=== PATIENT | female | born 1940 | race Caucasian/White ===

== ENCOUNTER 2019-08-14 13:23 | Inpatient (IN) | payer MEDICARE, OTHER ==
[~2019-08-14] VITALS: Ht 167.6 cm; Wt 91.5 kg
[2019-08-14] VITALS (9 sets, daily range): BP systolic 113–131; BP diastolic 45–72
[2019-08-14] MEDS ORDERED: CefTRIAXone 2gm/D5W 50ml 50 ML IV ONE (14:55)
[2019-08-14] MEDS ORDERED: normal saline 1000ML IV soln IV ONE (14:55)
[2019-08-14 15:50] LABS: BASOPHILS # (AUTO) 0.1 X10'3 (0-0.2); HEMOGLOBIN 7.2 g/dl (12.0-16.0); LYMPHOCYTES # (AUTO) 1.3 X10'3 (1.1-4.8); WHITE BLOOD COUNT 2.7 X10'3 (4.5-11.0)
[2019-08-14 15:51] LABS: BASOPHILS % (AUTO) 1.8 % (0-1); EOSINOPHILS # (AUTO) 0.1 X10'3 (0-0.9); EOSINOPHILS % (AUTO) 4.9 % (0-6); LYMPHOCYTES % (AUTO) 48.9 % (21-51); MEAN CORPUSCULAR HEMOGLOBIN 32.9 PG (27.0-31.0); MEAN CORPUSCULAR VOLUME 94.1 FL (78-98); MEAN PLATELET VOLUME 7.9 FL (7.4-10.4); MONOCYTES # (AUTO) 0.3 X10'3 (0-0.9); MONOCYTES % (AUTO) 11.2 % (2-12); NEUTROPHILS # (AUTO) 0.9 X10'3 (1.8-7.7); NEUTROPHILS % (AUTO) 33.2 % (42-75); PLATELET COUNT 413 X10'3 (140-440); RED BLOOD COUNT 2.19 X10'6 (4.20-5.60); RED CELL DISTRIBUTION WIDTH 18.3 % (11.5-14.5)
[2019-08-14 15:55] LABS: HEMATOCRIT 20.6 % (35.0-45.0)
[2019-08-14 16:01] LABS: PARTIAL THROMBOPLASTIN TIME 29 SECONDS (22-32)
[2019-08-14 16:10] LABS: ANISOCYTOSIS 2+; PLATELET ESTIMATE NORMAL; TOTAL CELLS COUNTED 100
[2019-08-14 16:11] LABS: ELLIPTOCYTES 1+; POIKILOCYTOSIS FEW; TEAR DROP CELLS FEW
[2019-08-14 16:16] LABS: ALANINE AMINOTRANSFERASE 34 U/L (12-78); ALBUMIN 2.6 G/DL (3.4-5.0); ALBUMIN/GLOBULIN RATIO 0.5 (1.1-1.5); ALKALINE PHOSPHATASE 77 IU/L (46-116); ANION GAP 9 (8-16); ASPARTATE AMINO TRANSFERASE 45 U/L (10-37); BILIRUBIN,TOTAL 0.8 MG/DL (0.1-1.0); BLOOD UREA NITROGEN 21 MG/DL (7-18); BUN/CREATININE RATIO 28.4 (6.6-38.0); CALCIUM 8.5 MG/DL (8.5-10.1); CHLORIDE 104 MMOL/L (99-107); CREATININE 0.74 MG/DL (0.40-0.90); GLUCOSE 107 MG/DL (70-104); SODIUM 140 MMOL/L (135-145); TOTAL CARBON DIOXIDE 26.7 MMOL/L (24-32); TOTAL PROTEIN 7.9 G/DL (6.4-8.2); eGFR 75 ML/MIN
[2019-08-14 16:17] LABS: CREATINE KINASE 749 U/L (26-192); MAGNESIUM 2.2 MG/DL (1.5-2.4)
--- NOTE | 2019-08-14 16:32 | NUR ---
romy pedro called and said she can not find the phone number for her son. she gave me the name of his son kailash carlson. pt. was unable to give romy pedro his phone number.
[2019-08-14] MEDS ORDERED: diltiazem-NS 100mg/100ml 100 ML IV SCH ×2 (16:45→20:30)
[2019-08-14] MEDS ORDERED: diltiazem-D5W 125mg/125ml 125 ML IV SCH (16:45)
--- NOTE | 2019-08-14 16:48 | NUR ---
pt went into afib with rvr. notified. repeat ekg called.
[2019-08-14 16:50] LABS: CLARITY,URINE CLOUDY (Clear); COLOR,URINE YELLOW (Yellow); GLUCOSE, URINE NEGATIVE (Neg); KETONES,URINE TRACE mg/dl (Neg); LEUKOCYTE ESTERASE ,URINE NEGATIVE (Neg); NITRITES, URINE NEGATIVE (Neg); OCCULT BLOOD,URINE SMALL (Neg); PROTEIN,URINE 30 mg/dl (Neg)
[2019-08-14 16:55] LABS: UA COLLECTION TYPE STRAIGHT CATH
[2019-08-14 16:56] LABS: BACTERIA,URINE 4+ /HPF (Neg); MUCUS STRANDS FEW /LPF (Neg); RBC,URINE 0-2 /HPF (0-2); SQUAMOUS EPITHELIAL CELL,UR FEW /LPF (FEW); WBC,URINE 0-4 /HPF (0-4)
[2019-08-14] MEDS: diltiazem 5mg/ml 5ml inj. IV ONE ×2 (16:56→17:13)
[2019-08-14] MEDS ORDERED: diltiazem 5mg/ml 5ml inj. IV ONE ×2 (17:05→17:50)
[2019-08-14] MEDS ORDERED: UBID30CA8 PO (17:06)
[2019-08-14] MEDS ORDERED: mag hydrox/Alum hydrox/simeth 30ml oral suspension PO PRN (17:10)
[2019-08-14] MEDS ORDERED: ondansetron/PF 4mg/2ml inj IV PRN (17:10)
[2019-08-14] MEDS ORDERED: acetaminophen 325mg tablet PO PRN (17:10)
[2019-08-14] MEDS ORDERED: magnesium hydroxide 30ml (MOM) UD suspension PO PRN (17:10)
[2019-08-14] MEDS ORDERED: morphine 2 MG/ML inj. syringe IV PRN ×2 (17:10)
[2019-08-14] MEDS ORDERED: ASPI-1264 PO (17:14)
--- NOTE | 2019-08-14 17:49 | NUR ---
TC TO DR. FOSTER TO INFORM OF PATIENT RESPONSE TO CARDIZEM IV AND CURRENT VITAL SIGNS. ORDERS RECEIVED.
[2019-08-14] MEDS ORDERED: diltiazem CD 120mg capsule (once-daily) PO SCH (17:50)
[2019-08-14] MEDS ORDERED: diltiazem CD 120mg capsule (once-daily) PO ONE (17:50)
--- NOTE | 2019-08-14 18:14 | NUR ---
AFTER BOTH DOSES OF IV CARDIZEM PUSH, AND THE PO CARDIZEM PT MENTIONED "SEEING THINGS" VAGUELY. WILL CONTINUE TO MONITOR IF THIS IS AN ADVERSE REACTION FROM THE MEDICATION.
--- NOTE | 2019-08-14 18:24 | NUR ---
md richardson notified of pt's pulse continuing in the 150-160s after second cardizem push, and po cardizem. dylan does not want to give anything else at this time and continue to monitor.
[2019-08-14] MEDS ORDERED: potassium Cl 20 mEq SR tablet PO STA (18:33)
[2019-08-14] MEDS: dextrose 5%-1/2 normal saline 1,000 ML IV SCH (20:48)
[2019-08-14] MEDS ORDERED: potassium Cl 20 mEq SR tablet PO PRN (21:55)
[2019-08-14] MEDS ORDERED: digoxin 250mcg/ml 2ml ampule IV ONE (22:05)
[2019-08-14] MEDS: potassium Cl 20 mEq SR tablet PO PRN (22:21)
[2019-08-15] VITALS (12 sets, daily range): BP systolic 132–155; BP diastolic 41–56
--- NOTE | 2019-08-15 00:20 | NUR ---
Patient arrived on unit at 1924/ I received patient report from KAY Bolivar in ED. Patient arrived on hospital [facility] and was transferred to hospital bed. Vital signs obtained, telemetry unit applied. Patient HR was 150's to 160 reported by KickAss Candy Aaliyah. Dr. Shay wanted to keep this patient on PO Cardizem, however, 85 min after receiving 2X 10 mg Cardizem push and 120 mg Po capsule, patient HR would not decrease. Called Dr. Keane and obtained order for Cardizem drip 5 mg/hr stop if systolic BP drops below <110. Patient HR remained high 140's-150's. Called Dr. Keane again and obtained order for 0.25 mg Digoxin IV push X1. Patient HR remains high at this time. Will follow up with Dr. Keane.
[2019-08-15] MEDS ORDERED: digoxin 250mcg/ml 2ml ampule IV ONE (02:00)
[2019-08-15 02:36] LABS: OCCULT BLOOD STOOL NEGATIVE (Neg)
--- NOTE | 2019-08-15 02:45 | NUR ---
Patient in room PCU 3016A. I have received report from KAY Beyer and had the opportunity to ask questions and assume patient care. Patient awake for bedside report. Patient on 5 mL/hr Cardizem and 100 mL/hr D5 1/2 NS per provider order. Patient on room air and stable at this time. Per roadway technician, patient converted to sinus rhythm with HR in 80's. Per Dr. Keane, we will keep Cardizem 5 mL/hr. Will continue to monitor closely.
--- NOTE | 2019-08-15 02:45 | NUR ---
Problems reprioritized. Patient report given, questions answered & plan of care reviewed with KAY Marroquin.
[2019-08-15] MEDS: potassium Cl 20 mEq SR tablet PO PRN (03:07)
[2019-08-15] MEDS: dextrose 5%-1/2 normal saline 1,000 ML IV SCH ×2 (03:17→13:08)
[2019-08-15 03:59] LABS: ALBUMIN 2.1 G/DL (3.4-5.0); ANION GAP 11 (8-16); BLOOD UREA NITROGEN 19 MG/DL (7-18); CALCIUM 7.7 MG/DL (8.5-10.1); CHLORIDE 107 MMOL/L (99-107); CHOL/HDL RATIO 6.6 (0.00-4.99); CHOLESTEROL 119 MG/DL (0-200); CREATININE 0.73 MG/DL (0.40-0.90); GLUCOSE 134 MG/DL (70-104); HDL CHOLESTEROL 18 MG/DL (35-60); LDL CHOLESTEROL 86 MG/DL (50-100); POTASSIUM 3.8 MMOL/L (3.5-5.1); SODIUM 140 MMOL/L (135-145); TOTAL CARBON DIOXIDE 21.9 MMOL/L (24-32); TRIGLYCERIDES 90 MG/DL (20-135); eGFR 77 ML/MIN
[2019-08-15 04:25] LABS: EOSINOPHILS # (AUTO) 0.2 X10'3 (0-0.9); EOSINOPHILS % (AUTO) 8.6 % (0-6); LYMPHOCYTES # (AUTO) 1.1 X10'3 (1.1-4.8); MONOCYTES # (AUTO) 0.3 X10'3 (0-0.9); NEUTROPHILS # (AUTO) 0.8 X10'3 (1.8-7.7)
[2019-08-15 04:27] LABS: BASOPHILS % (AUTO) 1.7 % (0-1); MEAN CORPUSCULAR HEMOGLOBIN 33.8 PG (27.0-31.0); MEAN CORPUSCULAR HGB CONC 34.9 g/dL (33.0-36.5); MEAN CORPUSCULAR VOLUME 96.8 FL (78-98); MEAN PLATELET VOLUME 8.5 FL (7.4-10.4); MONOCYTES % (AUTO) 12.2 % (2-12); NEUTROPHILS % (AUTO) 32.5 % (42-75); PLATELET COUNT 346 X10'3 (140-440); RED CELL DISTRIBUTION WIDTH 18.6 % (11.5-14.5); WHITE BLOOD COUNT 2.5 X10'3 (4.5-11.0)
[2019-08-15 04:37] LABS: HEMATOCRIT 19.4 % (35.0-45.0); HEMOGLOBIN 6.8 g/dl (12.0-16.0)
--- NOTE | 2019-08-15 05:00 | NUR ---
Dr. Keane notified of critical H&H 6.8 & 19.4, respectively. Consent for blood transfusion placed in chart to be completed by day time hospitalist and day RN per Dr. Keane. Will continue to monitor closely.
--- NOTE | 2019-08-15 06:21 | NUR ---
Problems reprioritized. Patient report given, questions answered & plan of care reviewed with KAY Nichols and KAY Antunez.
--- NOTE | 2019-08-15 06:37 | NUR ---
Patient in room PCU 3016. I have received report from KAY Marroquin and had the opportunity to ask questions and assume patient care.
--- NOTE | 2019-08-15 06:39 | NUR ---
Patient in room PCU 3016. I have received report from Lopez VILLANUEVA and had the opportunity to ask questions and assume patient care. Patient awake in bed with no complaints at this time. All immediate needs met.
[2019-08-15 07:35] LABS: NEUTROPHILS % (MANUAL) 30 % (42-75); TOTAL CELLS COUNTED 100
[2019-08-15 07:36] LABS: EOSINOPHILS % (MANUAL) 4 % (0-6); LYMPHOCYTES % (MANUAL) 49 % (21-51); MONOCYTES % (MANUAL) 15 % (2-12); PLATELET ESTIMATE NORMAL; REACTIVE LYMPHOCYTES % 2 % (0-0)
[2019-08-15 07:37] LABS: ANISOCYTOSIS 2+; ELLIPTOCYTES 1+; SCHISTOCYTES 1+
[2019-08-15 08:44] LABS: LACTATE DEHYDROGENASE 361 U/L (81-234)
[2019-08-15 08:49] LABS: RED BLOOD COUNT 2.03 X10'6 (4.20-5.60); RETICULOCYTE % (AUTO) 1.2 % (0.5-1.5)
--- NOTE | 2019-08-15 08:51 | NUR ---
New orders per Dr. Shay: Discontinue cardizem gtt. 1 unit PRBC now. Levaquin 500 mg IV daily. Flagyl 500 mg IV Q8H. PT evaluation and treat.
[2019-08-15] MEDS: metroNIDAZOLE-Flagyl 500mg/NS 100 ML IV SCH ×2 (10:35→17:43)
[2019-08-15] MEDS: levoFLOXACIN-Levaquin 500mg/D5 100 ML IV SCH (13:12)
[2019-08-15] MEDS: HYDROcodone/acetaminophen 5mg/325mg tablet PO PRN (15:24)
--- NOTE | 2019-08-15 18:26 | NUR ---
Problems reprioritized. Patient report given, questions answered & plan of care reviewed with Kayleen VILLANUEVA. Patient stable at transfer of care.
--- NOTE | 2019-08-15 18:26 | NUR ---
Patient in room PCU 3016. I have received report from KAY Nichols and had the opportunity to ask questions and assume patient care.
--- NOTE | 2019-08-15 18:26 | NUR ---
Problems reprioritized. Patient report given, questions answered & plan of care reviewed with KAY Beyer.
[2019-08-15 22:06] LABS: HEMATOCRIT 23.7 % (35.0-45.0); HEMOGLOBIN 8.2 g/dl (12.0-16.0); MEAN CORPUSCULAR HEMOGLOBIN 32.2 PG (27.0-31.0); MEAN CORPUSCULAR HGB CONC 34.5 g/dL (33.0-36.5); MEAN CORPUSCULAR VOLUME 93.3 FL (78-98); MEAN PLATELET VOLUME 8.1 FL (7.4-10.4); PLATELET COUNT 255 X10'3 (140-440); RED BLOOD COUNT 2.55 X10'6 (4.20-5.60); RED CELL DISTRIBUTION WIDTH 19.7 % (11.5-14.5); WHITE BLOOD COUNT 2.5 X10'3 (4.5-11.0)
[2019-08-16] VITALS (8 sets, daily range): BP systolic 113–174; BP diastolic 47–91
[2019-08-16] MEDS: dextrose 5%-1/2 normal saline 1,000 ML IV SCH ×3 (04:03→22:47)
[2019-08-16] MEDS: metroNIDAZOLE-Flagyl 500mg/NS 100 ML IV SCH ×2 (04:03→08:35)
[2019-08-16 05:42] LABS: HEMOGLOBIN 8.2 g/dl (12.0-16.0); LYMPHOCYTES # (AUTO) 1.1 X10'3 (1.1-4.8)
[2019-08-16 05:48] LABS: BASOPHILS % (AUTO) 1.6 % (0-1); EOSINOPHILS % (AUTO) 0.2 % (0-6); HEMATOCRIT 23.4 % (35.0-45.0); LYMPHOCYTES % (AUTO) 42.5 % (21-51); MEAN CORPUSCULAR HEMOGLOBIN 32.6 PG (27.0-31.0); MEAN CORPUSCULAR VOLUME 93.2 FL (78-98); MEAN PLATELET VOLUME 8.2 FL (7.4-10.4); MONOCYTES # (AUTO) 1.3 X10'3 (0-0.9); MONOCYTES % (AUTO) 49.9 % (2-12); NEUTROPHILS # (AUTO) 0.1 X10'3 (1.8-7.7); NEUTROPHILS % (AUTO) 5.8 % (42-75); PLATELET COUNT 241 X10'3 (140-440); RED BLOOD COUNT 2.51 X10'6 (4.20-5.60); RED CELL DISTRIBUTION WIDTH 19.9 % (11.5-14.5); WHITE BLOOD COUNT 2.6 X10'3 (4.5-11.0)
[2019-08-16 06:01] LABS: ALBUMIN 2.1 G/DL (3.4-5.0); ANION GAP 11 (8-16); BLOOD UREA NITROGEN 12 MG/DL (7-18); CALCIUM 8.1 MG/DL (8.5-10.1); CHLORIDE 108 MMOL/L (99-107); CREATININE 0.63 MG/DL (0.40-0.90); GLUCOSE 129 MG/DL (70-104); POTASSIUM 3.2 MMOL/L (3.5-5.1); SODIUM 140 MMOL/L (135-145); TOTAL CARBON DIOXIDE 20.9 MMOL/L (24-32); eGFR > 90 ML/MIN
--- NOTE | 2019-08-16 06:24 | NUR ---
Patient in room PCU 3016. I have received report from KAY Beyer and had the opportunity to ask questions and assume patient care.
--- NOTE | 2019-08-16 06:26 | NUR ---
Patient in room PCU 3016. I have received report from Kayleen VILLANUEVA and had the opportunity to ask questions and assume patient care. Patient awake in bed with no complaints. All immediate needs met at this time.
--- NOTE | 2019-08-16 06:47 | NUR ---
Patient was too dizzy to stand last night. Patient was uncooperative as well. Addendum: 08/16/19 at 0648 by Kayleen Adames RN Amended: Links added.
--- NOTE | 2019-08-16 06:51 | NUR ---
Problems reprioritized. Patient report given, questions answered & plan of care reviewed with KAY Nichols.
[2019-08-16] MEDS: levoFLOXACIN-Levaquin 500mg/D5 100 ML IV SCH (07:16)
[2019-08-16] MEDS ORDERED: diltiazem 30mg tablet PO ONE (07:55)
--- NOTE | 2019-08-16 07:55 | NUR ---
New order from Dr. Fulton. Cardizem PO 30 mg once now.
[2019-08-16 08:03] LABS: ANISOCYTOSIS 2+; PLATELET ESTIMATE NORMAL; TOTAL CELLS COUNTED 100
[2019-08-16 08:04] LABS: ELLIPTOCYTES 1+; POLYCHROMASIA FEW; SCHISTOCYTES FEW
[2019-08-16 08:05] LABS: BURR CELLS FEW; TEAR DROP CELLS FEW
[2019-08-16] MEDS: HYDROcodone/acetaminophen 5mg/325mg tablet PO PRN (08:33)
--- NOTE | 2019-08-16 10:13 | NUR ---
Paged Dr. Fulton: PAGER ID: [phone] MESSAGE: RE: Blessing [place] [phone]. FYI patient received 30 mg PO Cardizem once. HR now trending in the 150's. Please advise if any new orders. Thank you Magdalena [phone]
[2019-08-16] MEDS ORDERED: diltiazem 5mg/ml 5ml inj. IV ONE (10:25)
--- NOTE | 2019-08-16 13:24 | NUR ---
Paged Ralph regarding pts HR trending between 140s - 150s PAGER ID: [phone] MESSAGE: [phone]: Blessing [place] - TASHAI Pt was given 5mg IV Cardizem once at 1026. Pt still trending 140s-150s. Please advise! Thanks. - Harmony [phone]
[2019-08-16 14:27] LABS: HEMATOCRIT 25.5 % (35.0-45.0); HEMOGLOBIN 8.9 g/dl (12.0-16.0); MEAN CORPUSCULAR HEMOGLOBIN 32.5 PG (27.0-31.0); MEAN CORPUSCULAR VOLUME 92.8 FL (78-98); MEAN PLATELET VOLUME 7.6 FL (7.4-10.4); PLATELET COUNT 215 X10'3 (140-440); RED BLOOD COUNT 2.75 X10'6 (4.20-5.60); RED CELL DISTRIBUTION WIDTH 20.1 % (11.5-14.5); WHITE BLOOD COUNT 2.4 X10'3 (4.5-11.0)
[2019-08-16] MEDS: diltiazem-NS 100mg/100ml 100 ML IV SCH ×2 (14:38→19:09)
[2019-08-16] MEDS ORDERED: metroNIDAZOLE 500mg tablet PO SCH (16:00)
[2019-08-16] MEDS ORDERED: acetaminophen 650mg rectal suppository RC PRN (17:00)
--- NOTE | 2019-08-16 17:02 | NUR ---
New orders per Dr. Rodriguez 650 tylenol rectal Q6H for fever, cardizem gtt @ 10 mL/hour.
--- NOTE | 2019-08-16 17:13 | NUR ---
Paged Donaldo regarding pts current status and that a Rapid Response was called. MESSAGE: [id number]: Blessing Bridgette: FYI: Called Rapid Response. Pt has a fever of 103 axillary, RR 30, HR 152, 93%. Pt not as responsive as this morning, -RHODA Antunez
[2019-08-16] MEDS ORDERED: iohexol 300mg/ml 100ml inj. ONE (17:31)
--- NOTE | 2019-08-16 19:00 | NUR ---
Problems reprioritized. Patient report given, questions answered & plan of care reviewed with KAY Nichols [].
[2019-08-16] MEDS ORDERED: amLODIPine 5mg tablet PO ONE (19:20)
[2019-08-16] MEDS ORDERED: heparin 10,000 units/1 ML INJ IV PRN (19:25)
[2019-08-16] MEDS ORDERED: heparin 10,000 units/1 ML INJ IV ONE (19:25)
--- NOTE | 2019-08-16 19:43 | NUR ---
Orientee documentation: I have reviewed and agree with all interventions, assessments performed and documented by Harmony VILLANUEVA. [place] Medication Administration: For this medication-pass time frame, all medication were reviewed, dispensed, administered and documented per hospital policy by Harmony VILLANUEVA.
[2019-08-16 20:12] LABS: EOSINOPHILS # (AUTO) 0.1 X10'3 (0-0.9); LYMPHOCYTES # (AUTO) 0.9 X10'3 (1.1-4.8); NEUTROPHILS # (AUTO) 1.6 X10'3 (1.8-7.7); WHITE BLOOD COUNT 2.6 X10'3 (4.5-11.0)
[2019-08-16 20:14] LABS: BASOPHILS % (AUTO) 1.1 % (0-1); HEMATOCRIT 22.8 % (35.0-45.0); LYMPHOCYTES % (AUTO) 33.3 % (21-51); MEAN CORPUSCULAR HEMOGLOBIN 32.9 PG (27.0-31.0); MEAN CORPUSCULAR HGB CONC 35.2 g/dL (33.0-36.5); MEAN CORPUSCULAR VOLUME 93.5 FL (78-98); MEAN PLATELET VOLUME 8.8 FL (7.4-10.4); MONOCYTES % (AUTO) 0.3 % (2-12); NEUTROPHILS % (AUTO) 60.3 % (42-75); PLATELET COUNT 196 X10'3 (140-440); RED BLOOD COUNT 2.44 X10'6 (4.20-5.60); RED CELL DISTRIBUTION WIDTH 19.7 % (11.5-14.5)
[2019-08-16] MEDS: heparin 25,000 UNIT/250ml bag 250 ML IV SCH (20:50)
[2019-08-16 20:52] LABS: TOTAL CELLS COUNTED 100
[2019-08-16 20:53] LABS: ANISOCYTOSIS 2+; PLATELET ESTIMATE NORMAL
[2019-08-16 20:54] LABS: ELLIPTOCYTES 2+; HYPERSEGMENTED NEUTROPHILS FEW; POLYCHROMASIA FEW; SCHISTOCYTES 1+; TEAR DROP CELLS FEW
[2019-08-16] MEDS: potassium CL 10mEq/100ml bag 100 ML IV PRN (21:38)
[2019-08-17] VITALS (10 sets, daily range): BP systolic 96–159; BP diastolic 39–51
[2019-08-17] MEDS ORDERED: metroNIDAZOLE-Flagyl 500mg/NS 100 ML IV SCH
--- NOTE | 2019-08-17 00:06 | NUR ---
Flores placed due to minimal urine output since 1800 shift change, and only 200 out during dayshift. 1350 of urine was drained from patients bladder. Urine is dark justin and slightly cloudy, strong smell.
[2019-08-17] MEDS: potassium CL 10mEq/100ml bag 100 ML IV PRN ×3 (00:14→03:38)
[2019-08-17 02:11] LABS: WHITE BLOOD COUNT 4.5 X10'3 (4.5-11.0)
[2019-08-17 02:13] LABS: BASOPHILS % (AUTO) 0.8 % (0-1); EOSINOPHILS # (AUTO) 0.1 X10'3 (0-0.9); EOSINOPHILS % (AUTO) 1.4 % (0-6); HEMATOCRIT 23.8 % (35.0-45.0); HEMOGLOBIN 8.3 g/dl (12.0-16.0); LYMPHOCYTES # (AUTO) 1.9 X10'3 (1.1-4.8); LYMPHOCYTES % (AUTO) 41.4 % (21-51); MEAN CORPUSCULAR HEMOGLOBIN 32.7 PG (27.0-31.0); MEAN CORPUSCULAR VOLUME 93.6 FL (78-98); MEAN PLATELET VOLUME 7.7 FL (7.4-10.4); MONOCYTES # (AUTO) 0.1 X10'3 (0-0.9); MONOCYTES % (AUTO) 1.7 % (2-12); NEUTROPHILS # (AUTO) 2.5 X10'3 (1.8-7.7); NEUTROPHILS % (AUTO) 54.7 % (42-75); PLATELET COUNT 176 X10'3 (140-440); RED BLOOD COUNT 2.54 X10'6 (4.20-5.60); RED CELL DISTRIBUTION WIDTH 20.6 % (11.5-14.5)
--- NOTE | 2019-08-17 02:31 | NUR ---
This patient is extremely ill. She does have new complaints. She is SOB, tachypneic, and has severe abdominal pain. Abdomen was distended and rigid. Bladder distention and minimal to no urine output noted. Performed bladder scan and showed 779 in bladder. Received order from Diya to place Flores. 1350 of dark justin urine out. Upon genitalia assessment I noted a rather odd looking mass in her vagina in which appeared as a prolapse. Upon assessing further, discovered it is attached to the vaginal wall. I do not know what it is. Patient stool is clear, jelly like in color and has been reported to Dr. Keane.
[2019-08-17 03:15] LABS: ANISOCYTOSIS 3+; ELLIPTOCYTES 2+; NUCLEATED RED BLOOD CELLS 1 /100WBC (0-0); POLYCHROMASIA 3+; SCHISTOCYTES 2+; TOTAL CELLS COUNTED 100
[2019-08-17 03:16] LABS: PLATELET ESTIMATE NORMAL
[2019-08-17] MEDS: diltiazem-NS 100mg/100ml 100 ML IV SCH ×2 (03:29→08:12)
[2019-08-17 03:37] LABS: ALBUMIN 1.9 G/DL (3.4-5.0); ANION GAP 10 (8-16); BLOOD UREA NITROGEN 15 MG/DL (7-18); BUN/CREATININE RATIO 18.1 (6.6-38.0); CHLORIDE 106 MMOL/L (99-107); CREATININE 0.83 MG/DL (0.40-0.90); GLUCOSE 153 MG/DL (70-104); POTASSIUM 3.5 MMOL/L (3.5-5.1); SODIUM 138 MMOL/L (135-145); TOTAL CARBON DIOXIDE 22.5 MMOL/L (24-32); eGFR 66 ML/MIN
--- NOTE | 2019-08-17 06:30 | NUR ---
Problems reprioritized. Patient report given, questions answered & plan of care reviewed with KAY Nichols.
--- NOTE | 2019-08-17 06:38 | NUR ---
Patient in room PCU 3016. I have received report from KAY Beyer and had the opportunity to ask questions and assume patient care.
[2019-08-17] MEDS: metroNIDAZOLE 500mg tablet PO SCH ×3 (08:36→23:55)
--- NOTE | 2019-08-17 09:04 | NUR ---
Addy Rosas and jennifer EVANS of pt converting to NSR PAGER ID: [phone] MESSAGE: [phone] Blessing Batres -- FYI: Pt converted to NSR to 0803. HR in 80s. Thanks. - Harmony [phone]
[2019-08-17 09:29] LABS: EOSINOPHILS # (AUTO) 0.1 X10'3 (0-0.9); HEMOGLOBIN 7.9 g/dl (12.0-16.0); LYMPHOCYTES # (AUTO) 1.3 X10'3 (1.1-4.8); RED BLOOD COUNT 2.41 X10'6 (4.20-5.60); WHITE BLOOD COUNT 3.1 X10'3 (4.5-11.0)
[2019-08-17 09:31] LABS: BASOPHILS % (AUTO) 0.9 % (0-1); EOSINOPHILS % (AUTO) 2.5 % (0-6); HEMATOCRIT 22.6 % (35.0-45.0); LYMPHOCYTES % (AUTO) 41.7 % (21-51); MEAN CORPUSCULAR HEMOGLOBIN 32.8 PG (27.0-31.0); MEAN CORPUSCULAR VOLUME 93.7 FL (78-98); MEAN PLATELET VOLUME 7.5 FL (7.4-10.4); MONOCYTES # (AUTO) 0.8 X10'3 (0-0.9); MONOCYTES % (AUTO) 26.2 % (2-12); NEUTROPHILS # (AUTO) 0.9 X10'3 (1.8-7.7); NEUTROPHILS % (AUTO) 28.7 % (42-75); PLATELET COUNT 172 X10'3 (140-440); RED CELL DISTRIBUTION WIDTH 20.7 % (11.5-14.5)
[2019-08-17 10:06] LABS: ANISOCYTOSIS 3+; PLATELET ESTIMATE NORMAL; TOTAL CELLS COUNTED 100
[2019-08-17 10:07] LABS: ELLIPTOCYTES 2+; SCHISTOCYTES 1+
[2019-08-17 10:10] LABS: POLYCHROMASIA FEW
--- NOTE | 2019-08-17 10:27 | NUR ---
Per Dr. Fulton, a rate change was made from 15mg to 5mg to pts IV cardizem gtt. Ordered a guaiac test and WBC stool.
[2019-08-17] MEDS: dextrose 5%-1/2 normal saline 1,000 ML IV SCH ×2 (10:39→22:00)
[2019-08-17] MEDS: heparin 10,000 units/1 ML INJ IV PRN (12:02)
[2019-08-17] MEDS: heparin 25,000 UNIT/250ml bag 250 ML IV SCH (12:11)
[2019-08-17] MEDS: levoFLOXACIN 500mg tablet PO SCH (12:17)
[2019-08-17 12:38] LABS: OCCULT BLOOD STOOL NEGATIVE (Neg)
[2019-08-17 14:17] LABS: BASOPHILS % (AUTO) 0.9 % (0-1); EOSINOPHILS # (AUTO) 0.1 X10'3 (0-0.9); EOSINOPHILS % (AUTO) 3.4 % (0-6); HEMOGLOBIN 7.7 g/dl (12.0-16.0); LYMPHOCYTES # (AUTO) 1.2 X10'3 (1.1-4.8); LYMPHOCYTES % (AUTO) 41.3 % (21-51); MEAN CORPUSCULAR HEMOGLOBIN 32.9 PG (27.0-31.0); MEAN CORPUSCULAR VOLUME 94.2 FL (78-98); MEAN PLATELET VOLUME 8.1 FL (7.4-10.4); MONOCYTES # (AUTO) 0.7 X10'3 (0-0.9); MONOCYTES % (AUTO) 23.4 % (2-12); NEUTROPHILS # (AUTO) 0.9 X10'3 (1.8-7.7); PLATELET COUNT 164 X10'3 (140-440); RED BLOOD COUNT 2.34 X10'6 (4.20-5.60); RED CELL DISTRIBUTION WIDTH 20.4 % (11.5-14.5)
--- NOTE | 2019-08-17 14:21 | NUR ---
Pagewilfred Fulton PAGER ID: [phone] MESSAGE: [phone] Blessing [place]: Critical Value Hgb of 7.7 and Hct of 22.0. -Harmony [phone]
[2019-08-17] MEDS: diltiazem 30mg tablet PO SCH ×2 (15:50→20:00)
[2019-08-17] MEDS: piperacillin/tazo 3.375gm/50ml 50 ML IV SCH ×2 (16:45→23:56)
--- NOTE | 2019-08-17 18:20 | NUR ---
Patient in room PCU 3016. I have received report from Magdalena VILLANUEVA and Harmony RN and had the opportunity to ask questions and assume patient care.
--- NOTE | 2019-08-17 18:59 | NUR ---
Problems reprioritized. Patient report given, questions answered & plan of care reviewed with Tonya VILLANUEVA. Patient stable at transfer of care.
--- NOTE | 2019-08-17 19:00 | NUR ---
Orientee documentation: I have reviewed and agree with all interventions, assessments performed and documented by Harmony VILLANUEVA. [place] Medication Administration: For this medication-pass time frame, all medication were reviewed, dispensed, administered and documented per hospital policy by KAY Antunez.
[2019-08-17 19:10] LABS: WHITE BLOOD COUNT 2.8 X10'3 (4.5-11.0)
[2019-08-17 19:11] LABS: MEAN CORPUSCULAR HEMOGLOBIN 32.8 PG (27.0-31.0); MEAN CORPUSCULAR HGB CONC 35.2 g/dL (33.0-36.5); MEAN CORPUSCULAR VOLUME 93.1 FL (78-98); MEAN PLATELET VOLUME 7.9 FL (7.4-10.4); PLATELET COUNT 146 X10'3 (140-440); RED BLOOD COUNT 2.13 X10'6 (4.20-5.60); RED CELL DISTRIBUTION WIDTH 19.9 % (11.5-14.5)
[2019-08-17 19:14] LABS: HEMATOCRIT 19.9 % (35.0-45.0)
[2019-08-17] MEDS ORDERED: diltiazem 30mg tablet PO SCH (20:00)
--- NOTE | 2019-08-17 20:00 | NUR ---
Lab called with critical Hgb/Hct 7.0/19.9. Called Dr. Keane with results. Orders for 1unit PRBC's.
[2019-08-17 20:02] LABS: LYMPHOCYTES % (MANUAL) 54 % (21-51); MONOCYTES % (MANUAL) 14 % (2-12); NEUTROPHILS % (MANUAL) 28 % (42-75); TOTAL CELLS COUNTED 100
[2019-08-17 20:03] LABS: ANISOCYTOSIS 2+; ELLIPTOCYTES 2+; IMMATURE CELLS 2 % (0-0); PLATELET ESTIMATE NORMAL; REACTIVE LYMPHOCYTES % 2 % (0-0); SCHISTOCYTES 1+; SMUDGE CELLS FEW
[2019-08-18] MEDS: dextrose 5%-1/2 normal saline 1,000 ML IV SCH ×2 (01:08→09:01)
[2019-08-18] MEDS: diltiazem 30mg tablet PO SCH ×4 (01:27→21:00)
[2019-08-18 02:10] LABS: ALBUMIN 1.7 G/DL (3.4-5.0); ANION GAP 12 (8-16); BLOOD UREA NITROGEN 12 MG/DL (7-18); CALCIUM 7.6 MG/DL (8.5-10.1); CHLORIDE 106 MMOL/L (99-107); CREATININE 0.63 MG/DL (0.40-0.90); GLUCOSE 117 MG/DL (70-104); SODIUM 141 MMOL/L (135-145); eGFR > 90 ML/MIN
[2019-08-18 02:12] LABS: POTASSIUM 2.7 MMOL/L (3.5-5.1)
[2019-08-18] MEDS ORDERED: potassium CL 10mEq/100ml bag 100 ML IV PRN (02:20)
[2019-08-18 02:36] LABS: HEMATOCRIT 23.7 % (35.0-45.0); HEMOGLOBIN 8.3 g/dl (12.0-16.0); MEAN CORPUSCULAR HEMOGLOBIN 31.6 PG (27.0-31.0); MEAN CORPUSCULAR HGB CONC 34.8 g/dL (33.0-36.5); MEAN CORPUSCULAR VOLUME 90.7 FL (78-98); MEAN PLATELET VOLUME 7.6 FL (7.4-10.4); PLATELET COUNT 136 X10'3 (140-440); RED BLOOD COUNT 2.62 X10'6 (4.20-5.60); RED CELL DISTRIBUTION WIDTH 19.6 % (11.5-14.5); WHITE BLOOD COUNT 3.1 X10'3 (4.5-11.0)
[2019-08-18] MEDS: potassium Cl 20 mEq SR tablet PO PRN ×4 (02:36→21:26)
[2019-08-18 03:00] VITALS: BP 133/47
[2019-08-18 03:05] LABS: ANISOCYTOSIS 2+; HYPOCHROMASIA 1+; IMMATURE CELLS 7 % (0-0); LYMPHOCYTES % (MANUAL) 43 % (21-51); MONOCYTES % (MANUAL) 14 % (2-12); NEUTROPHILS % (MANUAL) 32 % (42-75); PLATELET ESTIMATE DECREASED; REACTIVE LYMPHOCYTES % 4 % (0-0); TOTAL CELLS COUNTED 100
[2019-08-18 03:06] LABS: ELLIPTOCYTES 2+; SCHISTOCYTES FEW
[2019-08-18] MEDS: heparin 25,000 UNIT/250ml bag 250 ML IV SCH ×4 (04:05→21:33)
[2019-08-18] MEDS: heparin 10,000 units/1 ML INJ IV PRN ×3 (04:07→21:32)
[2019-08-18 06:00] VITALS: BP 130/48
--- NOTE | 2019-08-18 06:17 | NUR ---
Patient in room PCU 3016. I have received report from Tonya VILLANUEVA and had the opportunity to ask questions and assume patient care.
--- NOTE | 2019-08-18 06:17 | NUR ---
Problems reprioritized. Patient report given, questions answered & plan of care reviewed with Jerri VILLANUEVA and Aye VILLANUEVA.
--- NOTE | 2019-08-18 06:37 | NUR ---
Patient in room PCU 3016. I have received report from KAY Castaneda and had the opportunity to ask questions and assume patient care.
[2019-08-18] MEDS: piperacillin/tazo 3.375gm/50ml 50 ML IV SCH ×3 (07:55→23:38)
[2019-08-18] MEDS: metroNIDAZOLE 500mg tablet PO SCH (07:56)
[2019-08-18 08:00] VITALS: BP_SYST 144; BP_SYST 163; BP_DIAS 103; BP_DIAS 54
[2019-08-18 10:58] LABS: HEMATOCRIT 23.8 % (35.0-45.0); HEMOGLOBIN 8.4 g/dl (12.0-16.0); MEAN CORPUSCULAR HEMOGLOBIN 31.6 PG (27.0-31.0); MEAN CORPUSCULAR HGB CONC 35.3 g/dL (33.0-36.5); MEAN CORPUSCULAR VOLUME 89.7 FL (78-98); MEAN PLATELET VOLUME 7.9 FL (7.4-10.4); PLATELET COUNT 151 X10'3 (140-440); RED BLOOD COUNT 2.66 X10'6 (4.20-5.60); RED CELL DISTRIBUTION WIDTH 19.7 % (11.5-14.5); WHITE BLOOD COUNT 2.9 X10'3 (4.5-11.0)
[2019-08-18 11:00] VITALS: BP 161/58
[2019-08-18] MEDS: levoFLOXACIN 500mg tablet PO SCH (11:30)
[2019-08-18] MEDS: HYDROcodone/acetaminophen 5mg/325mg tablet PO PRN (11:30)
[2019-08-18 11:46] LABS: ANISOCYTOSIS 2+; PLATELET ESTIMATE NORMAL; TOTAL CELLS COUNTED 100; TOXIC VACUOLATION 1+
[2019-08-18 11:47] LABS: GIANT PLATELET FEW; LARGE PLATELETS FEW
[2019-08-18 11:48] LABS: ELLIPTOCYTES 1+; HYPOCHROMASIA 1+
[2019-08-18] MEDS ORDERED: mag hydrox/Alum hydrox/simeth 30ml oral suspension PO ONE (12:55)
[2019-08-18] MEDS ORDERED: pantoprazole 40 MG vial IV SCH ×2 (12:55→20:00)
--- NOTE | 2019-08-18 14:36 | NUR ---
Jalen trigger: Jalen 12 pt has bilateral ankle +1 trace edema; skin intact. Addendum: 08/18/19 at [address] Amended: Links added.
[2019-08-18 14:59] LABS: HEMATOCRIT 23.2 % (35.0-45.0); HEMOGLOBIN 8.3 g/dl (12.0-16.0)
[2019-08-18 15:00] VITALS: BP 118/70
[2019-08-18 15:01] LABS: MEAN CORPUSCULAR HEMOGLOBIN 31.8 PG (27.0-31.0); MEAN CORPUSCULAR HGB CONC 35.7 g/dL (33.0-36.5); MEAN PLATELET VOLUME 7.6 FL (7.4-10.4); PLATELET COUNT 160 X10'3 (140-440); RED BLOOD COUNT 2.61 X10'6 (4.20-5.60); RED CELL DISTRIBUTION WIDTH 19.9 % (11.5-14.5); WHITE BLOOD COUNT 2.6 X10'3 (4.5-11.0)
--- NOTE | 2019-08-18 16:16 | NUR ---
Pt son, Jon, called and was updated on the pts plan of care.
--- NOTE | 2019-08-18 16:30 | NUR ---
Dr. Fulton at bedside and ordered the pt be NPO at midnight for possible GI evaluation on 08/19. Also received orders for starting a protonix gtt per protocol. Dr. Fulton updated the pt on plan of care. I will continue to monitor the pt closely.
[2019-08-18 16:34] LABS: METAMYLEOCYTES% (MANUAL) 0 % (0-0); MYELOCYTES % (MANUAL) 0 % (0-0); TOTAL CELLS COUNTED 100
[2019-08-18 16:36] LABS: ACANTHOCYTES FEW; ANISOCYTOSIS 2+; BURR CELLS FEW; ELLIPTOCYTES 1+; PLATELET ESTIMATE NORMAL; POIKILOCYTOSIS 2+; SCHISTOCYTES FEW; TEAR DROP CELLS FEW
[2019-08-18 16:38] LABS: HYPERSEGMENTED NEUTROPHILS FEW; SMUDGE CELLS FEW
[2019-08-18 18:00] VITALS: BP 158/54
--- NOTE | 2019-08-18 18:20 | NUR ---
Problems reprioritized. Patient report given, questions answered & plan of care reviewed with Lizzy VILLANUEVA.
--- NOTE | 2019-08-18 18:33 | NUR ---
Patient in room PCU 3016. I have received report from Sudarshan RN and had the opportunity to ask questions and assume patient care.
--- NOTE | 2019-08-18 18:39 | NUR ---
Orientee documentation: I have reviewed and agree with all interventions, assessments performed and documented by KAY Griffiths.
--- NOTE | 2019-08-18 18:40 | NUR ---
Problems reprioritized. Patient report given, questions answered & plan of care reviewed with KAY Ball.
--- NOTE | 2019-08-18 19:45 | NUR ---
Patient in room PCU 3016A. I have received report from KAY Henderson and had the opportunity to ask questions and assume patient care.
[2019-08-18 20:40] LABS: BASOPHILS % (AUTO) 0 % (0-1); EOSINOPHILS % (AUTO) 0 % (0-6); HEMATOCRIT 25.7 % (35.0-45.0); LYMPHOCYTES # (AUTO) 1.2 X10'3 (1.1-4.8); LYMPHOCYTES % (AUTO) 41.6 % (21-51); MEAN CORPUSCULAR HEMOGLOBIN 31.6 PG (27.0-31.0); MEAN PLATELET VOLUME 7.9 FL (7.4-10.4); MONOCYTES % (AUTO) 34.3 % (2-12); NEUTROPHILS # (AUTO) 0.7 X10'3 (1.8-7.7); NEUTROPHILS % (AUTO) 24.1 % (42-75); PLATELET COUNT 147 X10'3 (140-440); RED BLOOD COUNT 2.85 X10'6 (4.20-5.60); RED CELL DISTRIBUTION WIDTH 19.6 % (11.5-14.5); WHITE BLOOD COUNT 2.9 X10'3 (4.5-11.0)
[2019-08-18] MEDS: pantoprazole 40MG/NS 100ML BAG 100 ML IV SCH (21:00)
[2019-08-18 21:09] LABS: TOTAL CELLS COUNTED 100
[2019-08-18 21:10] LABS: ANISOCYTOSIS 2+; IMMATURE CELLS 6 % (0-0); LYMPHOCYTES % (MANUAL) 50 % (21-51); MONOCYTES % (MANUAL) 18 % (2-12); NEUTROPHILS % (MANUAL) 26 % (42-75); PLATELET ESTIMATE NORMAL; REACTIVE LYMPHOCYTES % 1 % (0-0)
[2019-08-18 21:11] LABS: BURR CELLS 1+; ELLIPTOCYTES 2+
[2019-08-19] VITALS (14 sets, daily range): BP systolic 96–171; BP diastolic 50–76
[2019-08-19 00:42] LABS: ALBUMIN 1.8 G/DL (3.4-5.0); ANION GAP 10 (8-16); BLOOD UREA NITROGEN 7 MG/DL (7-18); BUN/CREATININE RATIO 11.9 (6.6-38.0); CALCIUM 7.6 MG/DL (8.5-10.1); CHLORIDE 107 MMOL/L (99-107); CREATININE 0.59 MG/DL (0.40-0.90); GLUCOSE 110 MG/DL (70-104); POTASSIUM 3.5 MMOL/L (3.5-5.1); SODIUM 140 MMOL/L (135-145); TOTAL CARBON DIOXIDE 23.4 MMOL/L (24-32); eGFR > 90 ML/MIN
[2019-08-19] MEDS: pantoprazole 40MG/NS 100ML BAG 100 ML IV SCH ×3 (01:25→11:07)
[2019-08-19] MEDS: potassium Cl 20 mEq SR tablet PO PRN (01:26)
[2019-08-19] MEDS: diltiazem 30mg tablet PO SCH ×4 (01:26→20:16)
[2019-08-19] MEDS: heparin 25,000 UNIT/250ml bag 250 ML IV SCH ×3 (02:22→22:14)
--- NOTE | 2019-08-19 06:14 | NUR ---
Problems reprioritized. Patient report given, questions answered & plan of care reviewed with KAY Cross. Patient stable at shift change
--- NOTE | 2019-08-19 06:15 | NUR ---
Patient in room PCU 3016A. I have received report from Zandra VILLANUEVA and had the opportunity to ask questions and assume patient care. Patient laying in bed, eyes closed, IV fluids, IV protonix, and IV heparin infusing.
[2019-08-19] MEDS: piperacillin/tazo 3.375gm/50ml 50 ML IV SCH ×3 (07:44→23:42)
[2019-08-19 09:23] LABS: HEMOGLOBIN 8.6 g/dl (12.0-16.0); MEAN CORPUSCULAR VOLUME 90.7 FL (78-98); RED BLOOD COUNT 2.71 X10'6 (4.20-5.60)
[2019-08-19 09:24] LABS: HEMATOCRIT 24.5 % (35.0-45.0); MEAN CORPUSCULAR HEMOGLOBIN 31.9 PG (27.0-31.0); MEAN CORPUSCULAR HGB CONC 35.2 g/dL (33.0-36.5); MEAN PLATELET VOLUME 7.6 FL (7.4-10.4); PLATELET COUNT 157 X10'3 (140-440); RED CELL DISTRIBUTION WIDTH 19.8 % (11.5-14.5)
[2019-08-19 09:27] LABS: WHITE BLOOD COUNT 2.3 X10'3 (4.5-11.0)
--- NOTE | 2019-08-19 10:01 | NUR ---
Heparin drip infusing, at shift change drip was running at 22.5mL/hr. Repeat PTT at 0857 was 79. Per protocol, heparin adjusted to 21.5mL/hr.
[2019-08-19 10:37] LABS: ANISOCYTOSIS 2+; HYPOCHROMASIA 1+; PLATELET ESTIMATE NORMAL; TOTAL CELLS COUNTED 100
[2019-08-19 10:38] LABS: ELLIPTOCYTES 1+; POLYCHROMASIA 1+; SCHISTOCYTES 1+; TEAR DROP CELLS 1+
--- NOTE | 2019-08-19 12:20 | NUR ---
Initial: Pt admitted for severe weakness r/t anemia. Pt documented with hematoma on right occipital per WOC. Pt diet advanced to Mechanical soft diet with ground meats and thin liquids per ST, PO intake avg 25-50%, not meeting nutrient needs. Pt currently AOx2 with dementia likely contributing to poor PO intake. LBM 08/18. Will continue to monitor PO intake, consider appetite stimulant if poor intake persists given hx. Recommendation: 1. continue mechanical soft, ground meat diet and thin liquids per ST 2. monitor PO intake; consider appetite stimulant per MD approval if poor PO persist 3. bowel care as needed 4. weight per rx. Addendum: 08/19/19 at 1221 by Wing Rosalia SONG Amended: Links added. Addendum: 08/19/19 at [address] DUNCAN Duncan
[2019-08-19] MEDS ORDERED: iohexol 350MG/ML 100ml bottle IV ONE (15:49)
--- NOTE | 2019-08-19 17:00 | NUR ---
Patient returned from CT scan at 1645. Patient taken to GI lab at 1700, placed on GI lab gurney, heparin gtt infusing, other IV saline locked. Patient applied to GI tele monitor for procedure.
[2019-08-19] MEDS ORDERED: MIDAZolam 5mg/5ml vial ONE (17:09)
[2019-08-19] MEDS ORDERED: fentaNYL/PF 50MCG/1 ML 2ML syringe ONE (17:09)
[2019-08-19] MEDS ORDERED: LIDOcaine Viscous 15ml cup ONE (17:10)
--- NOTE | 2019-08-19 17:51 | NUR ---
Repeat DVT PTT was 72, no changes in rate per protocol. Patient in GI lab, will verify rate when patient returns from procedure.
--- NOTE | 2019-08-19 18:46 | NUR ---
Problems reprioritized. Patient report given, questions answered & plan of care reviewed with Lizzy VILLANUEVA. Patient returned from GI lab during report.
--- NOTE | 2019-08-19 18:49 | NUR ---
Patient in room PCU 3016. I have received report from America Kaye RN and had the opportunity to ask questions and assume patient care.
[2019-08-19] MEDS ORDERED: pantoprazole 40mg Tablet.DR PO SCH (20:00)
[2019-08-20] VITALS (12 sets, daily range): BP systolic 128–185; BP diastolic 46–117
[2019-08-20] MEDS: dextrose 5%-1/2 normal saline 1,000 ML IV SCH (02:16)
--- NOTE | 2019-08-20 03:04 | NUR ---
Heparin on IV spreadsheet @2200 says PTT is 156 but it was 72. I thought it said PLT. Unable to erase.
[2019-08-20] MEDS: diltiazem 30mg tablet PO SCH ×4 (03:16→20:13)
--- NOTE | 2019-08-20 06:15 | NUR ---
Problems reprioritized. Patient report given, questions answered & plan of care reviewed with America Kaye RN.
--- NOTE | 2019-08-20 06:19 | NUR ---
Patient in room PCU 3016A. I have received report from Lizzy VILLANUEVA and had the opportunity to ask questions and assume patient care.
[2019-08-20 07:08] LABS: EOSINOPHILS # (AUTO) 0.1 X10'3 (0-0.9); HEMOGLOBIN 7.9 g/dl (12.0-16.0); MONOCYTES # (AUTO) 0.5 X10'3 (0-0.9); WHITE BLOOD COUNT 2.2 X10'3 (4.5-11.0)
[2019-08-20 07:12] LABS: EOSINOPHILS % (AUTO) 4.6 % (0-6); HEMATOCRIT 22.6 % (35.0-45.0); LYMPHOCYTES # (AUTO) 1.2 X10'3 (1.1-4.8); LYMPHOCYTES % (AUTO) 51.9 % (21-51); MEAN CORPUSCULAR HGB CONC 35.2 g/dL (33.0-36.5); MEAN PLATELET VOLUME 7.7 FL (7.4-10.4); MONOCYTES % (AUTO) 21.7 % (2-12); NEUTROPHILS # (AUTO) 0.5 X10'3 (1.8-7.7); NEUTROPHILS % (AUTO) 20.8 % (42-75); PLATELET COUNT 151 X10'3 (140-440); RED BLOOD COUNT 2.48 X10'6 (4.20-5.60)
[2019-08-20 07:27] LABS: ALBUMIN 1.7 G/DL (3.4-5.0); ANION GAP 9 (8-16); BLOOD UREA NITROGEN 11 MG/DL (7-18); BUN/CREATININE RATIO 17.2 (6.6-38.0); CALCIUM 7.5 MG/DL (8.5-10.1); CHLORIDE 104 MMOL/L (99-107); CREATININE 0.64 MG/DL (0.40-0.90); GLUCOSE 120 MG/DL (70-104); POTASSIUM 3.3 MMOL/L (3.5-5.1); SODIUM 139 MMOL/L (135-145); TOTAL CARBON DIOXIDE 25.8 MMOL/L (24-32); eGFR 89 ML/MIN
[2019-08-20] MEDS: pantoprazole 40mg Tablet.DR PO SCH ×2 (07:33→17:45)
[2019-08-20] MEDS: piperacillin/tazo 3.375gm/50ml 50 ML IV SCH ×2 (07:33→15:58)
[2019-08-20] MEDS: heparin 25,000 UNIT/250ml bag 250 ML IV SCH ×2 (07:52→23:33)
[2019-08-20 08:16] LABS: TOTAL CELLS COUNTED 100
[2019-08-20 08:18] LABS: H PYLORI ANTIBODY NEGATIVE (Neg)
[2019-08-20 08:19] LABS: ANISOCYTOSIS 2+; ELLIPTOCYTES 1+; HYPOCHROMASIA 1+; PLATELET ESTIMATE NORMAL; POLYCHROMASIA FEW; SCHISTOCYTES 1+; TEAR DROP CELLS 1+
[2019-08-20 08:20] LABS: LARGE PLATELETS FEW
--- NOTE | 2019-08-20 11:07 | NUR ---
Paged hospitalist, Dr. Fulton, regarding patient's blood pressure. On 1100 VS check blood pressure is up to 170/55, has been in the 160's systolic last night and this morning. Patient has no complaints of chest pain, headache, weakness, or focal symptoms. Awaiting call back from hospitalist, will continue to monitor patient. PAGER ID: [phone] MESSAGE: America otero [phone]. RE Dain Angeles [id number]. Patient's BP is 170/55, has been trending in the 160's systolic all night. Do you want any BP meds? Thanks!
--- NOTE | 2019-08-20 14:08 | NUR ---
Notified by PT that patient is experiencing chest pain. I assessed patient and spoke with her, she describes right sided chest pain that has been intermittent for the past 2-3 days. She cannot describe the pain to me, stating it is "uncomfortable" but is unable to describe further. She denies any radiation of the pain, no left sided pain or neck/jaw pain. She denies any nausea, vomiting, diaphoresis or increased shortness of breath. VS: 128/46, HR 89, RR 29, SpO2 98% on 3L/min NC. I spoke with Dr. Fulton immediately after talking to the patient. Discussed with Dr. Fulton that the patient has been experiencing the chest pain for the past 2-3 days. Reviewed medications and tests with her, no change in orders, will continue to monitor the patient.
[2019-08-20] MEDS: acetaminophen 325mg tablet PO PRN (15:09)
--- NOTE | 2019-08-20 17:12 | NUR ---
Patient's blood pressure has been in the 160-170's systolic. Spoke with Dr. Fulton, hospitalist, regarding blood pressure management. Reviewed medications and orders, recommends continuing Cardizem PO as scheduled, no additional medication orders given. Will continue to monitor patient.
[2019-08-20] MEDS ORDERED: morphine 2 MG/ML inj. syringe IV ONE (17:35)
[2019-08-20] MEDS: potassium Cl 20 mEq SR tablet PO PRN (17:45)
--- NOTE | 2019-08-20 18:30 | NUR ---
Patient in room [facility] 3016. I have received report from Desirae VILLANUEVA and had the opportunity to ask questions and assume patient care. Addendum: 08/21/19 at 0635 by Kamari Redding RN report received from America Tillman RN NOT--Desirae VILLANUEVA
--- NOTE | 2019-08-20 18:44 | NUR ---
Problems reprioritized. Patient report given, questions answered & plan of care reviewed with Mumtaz RN.
--- NOTE | 2019-08-20 23:15 | NUR ---
NOTIFIED PAGER ID: [phone] MESSAGE: Blessing [place], [phone]- pt experiencing chest pain, did a 12 lead, ER MD reviewed (no stemi) and asked me to consult w/ hospitalist. 12 leads at RN station.
[2019-08-21] VITALS (8 sets, daily range): BP systolic 133–172; BP diastolic 49–102
[2019-08-21] MEDS: piperacillin/tazo 3.375gm/50ml 50 ML IV SCH ×3 (00:03→17:03)
[2019-08-21] MEDS: potassium Cl 20 mEq SR tablet PO PRN ×4 (00:03→17:03)
[2019-08-21] MEDS: diltiazem 30mg tablet PO SCH ×4 (02:18→20:10)
[2019-08-21 03:53] LABS: EOSINOPHILS # (AUTO) 0.1 X10'3 (0-0.9); HEMOGLOBIN 8.5 g/dl (12.0-16.0); MONOCYTES # (AUTO) 0.5 X10'3 (0-0.9); NEUTROPHILS # (AUTO) 0.7 X10'3 (1.8-7.7)
[2019-08-21 03:55] LABS: ALBUMIN 1.7 G/DL (3.4-5.0); ANION GAP 9 (8-16); BASOPHILS % (AUTO) 0.8 % (0-1); BLOOD UREA NITROGEN 8 MG/DL (7-18); BUN/CREATININE RATIO 14.3 (6.6-38.0); CHLORIDE 103 MMOL/L (99-107); CREATININE 0.56 MG/DL (0.40-0.90); EOSINOPHILS % (AUTO) 3.2 % (0-6); GLUCOSE 127 MG/DL (70-104); HEMATOCRIT 24.2 % (35.0-45.0); LYMPHOCYTES # (AUTO) 1.1 X10'3 (1.1-4.8); LYMPHOCYTES % (AUTO) 45.5 % (21-51); MEAN CORPUSCULAR HGB CONC 35.2 g/dL (33.0-36.5); MEAN CORPUSCULAR VOLUME 90.9 FL (78-98); MEAN PLATELET VOLUME 7.7 FL (7.4-10.4); MONOCYTES % (AUTO) 21.9 % (2-12); NEUTROPHILS % (AUTO) 28.6 % (42-75); PLATELET COUNT 159 X10'3 (140-440); POTASSIUM 3.4 MMOL/L (3.5-5.1); RED BLOOD COUNT 2.66 X10'6 (4.20-5.60); SODIUM 139 MMOL/L (135-145); TOTAL CARBON DIOXIDE 27.4 MMOL/L (24-32); WHITE BLOOD COUNT 2.4 X10'3 (4.5-11.0); eGFR > 90 ML/MIN
[2019-08-21] MEDS ORDERED: potassium Cl 20 mEq SR tablet PO PRN (05:10)
[2019-08-21] MEDS ORDERED: magnesium 4gm in 100ml NS 100 ML IV PRN (05:10)
[2019-08-21] MEDS ORDERED: magnesium Cl slow-release 64mg tablet PO PRN (05:10)
[2019-08-21] MEDS ORDERED: magnesium 2GM in 50ml NS 50 ML IV PRN (05:10)
[2019-08-21] MEDS ORDERED: potassium CL 10mEq/100ml bag 100 ML IV PRN (05:10)
[2019-08-21] MEDS: K and/or MAG REPLACEMENT MC SCH ×3 (05:21→20:00)
[2019-08-21 05:31] LABS: MAGNESIUM 1.8 MG/DL (1.5-2.4)
--- NOTE | 2019-08-21 06:26 | NUR ---
Patient in room PCU 3016A. I have received report from Mumtaz RN and had the opportunity to ask questions and assume patient care.
--- NOTE | 2019-08-21 06:33 | NUR ---
Problems reprioritized. Patient report given, questions answered & plan of care reviewed with Merissa Canada RN.
[2019-08-21 06:40] LABS: ANISOCYTOSIS 2+; PLATELET ESTIMATE NORMAL; TEAR DROP CELLS FEW; TOTAL CELLS COUNTED 100
[2019-08-21 06:41] LABS: ELLIPTOCYTES FEW; POLYCHROMASIA FEW; SCHISTOCYTES FEW
[2019-08-21] MEDS: pantoprazole 40mg Tablet.DR PO SCH ×2 (07:57→17:03)
--- NOTE | 2019-08-21 09:19 | NUR ---
Following up from maintenance technician 2nd shift report that ED MD said to let hospitalist know of 12 lead EKG done, paged Dr Fulton that EKG is in chart PAGER ID: [phone] MESSAGE: Merissa otero [phone]. RE Dain [place] 3016A. PT 12 lead EKG is in chart from maintenance technician 2nd shift (ER MD said to pass on to AM MD) for you to look at when you have the chance. Thank you
[2019-08-21] MEDS: heparin 25,000 UNIT/250ml bag 250 ML IV SCH (11:54)
[2019-08-21] MEDS: acetaminophen 325mg tablet PO PRN ×2 (12:47→20:12)
[2019-08-21] MEDS: dextrose 5%-1/2 normal saline 1,000 ML IV SCH (17:04)
--- NOTE | 2019-08-21 18:26 | NUR ---
Patient in room PCU 3016. I have received report from KAY Craven and had the opportunity to ask questions and assume patient care. Pt repositioned, no other complaints. Addendum: 08/21/19 at 1900 by Yuval Sharma RN Amended: Links added.
--- NOTE | 2019-08-21 18:28 | NUR ---
Problems reprioritized. Patient report given, questions answered & plan of care reviewed with Loraine VILLANUEVA. Patient is stable and resting in bed, has no complaints.
[2019-08-22] MEDS: piperacillin/tazo 3.375gm/50ml 50 ML IV SCH ×2 (00:28→07:32)
[2019-08-22 02:47] VITALS: BP 155/50
[2019-08-22] MEDS: diltiazem 30mg tablet PO SCH ×3 (02:48→14:29)
[2019-08-22] MEDS: heparin 25,000 UNIT/250ml bag 250 ML IV SCH ×2 (03:26→14:43)
[2019-08-22 05:47] LABS: MAGNESIUM 1.9 MG/DL (1.5-2.4)
[2019-08-22 06:00] VITALS: BP 158/63
--- NOTE | 2019-08-22 06:33 | NUR ---
Problems reprioritized. Patient report given, questions answered & plan of care reviewed with KAY TRAN. Addendum: 08/22/19 at 0634 by Yuval Sharma RN Amended: Links added.
[2019-08-22 06:59] LABS: POTASSIUM 3.5 MMOL/L (3.5-5.1)
--- NOTE | 2019-08-22 07:20 | NUR ---
PTT DVT theraputic.
[2019-08-22] MEDS: K and/or MAG REPLACEMENT MC SCH (07:22)
[2019-08-22] MEDS: pantoprazole 40mg Tablet.DR PO SCH (07:30)
[2019-08-22 11:00] VITALS: BP 154/71
[2019-08-22 12:55] LABS: EOSINOPHILS # (AUTO) 0.1 X10'3 (0-0.9); MEAN CORPUSCULAR HGB CONC 34.7 g/dL (33.0-36.5); MONOCYTES # (AUTO) 0.6 X10'3 (0-0.9); WHITE BLOOD COUNT 2.2 X10'3 (4.5-11.0)
[2019-08-22 12:57] LABS: BASOPHILS % (AUTO) 1.4 % (0-1); EOSINOPHILS % (AUTO) 3.9 % (0-6); LYMPHOCYTES % (AUTO) 45.8 % (21-51); MEAN CORPUSCULAR HEMOGLOBIN 31.8 PG (27.0-31.0); MEAN CORPUSCULAR VOLUME 91.5 FL (78-98); MEAN PLATELET VOLUME 8.6 FL (7.4-10.4); MONOCYTES % (AUTO) 25.8 % (2-12); NEUTROPHILS # (AUTO) 0.5 X10'3 (1.8-7.7); NEUTROPHILS % (AUTO) 23.1 % (42-75); PLATELET COUNT 189 X10'3 (140-440); RED BLOOD COUNT 2.51 X10'6 (4.20-5.60); RED CELL DISTRIBUTION WIDTH 18.2 % (11.5-14.5)
[2019-08-22 13:04] LABS: ALBUMIN 1.7 G/DL (3.4-5.0); ANION GAP 9 (8-16); BLOOD UREA NITROGEN 10 MG/DL (7-18); BUN/CREATININE RATIO 16.4 (6.6-38.0); CHLORIDE 103 MMOL/L (99-107); CREATININE 0.61 MG/DL (0.40-0.90); GLUCOSE 123 MG/DL (70-104); POTASSIUM 3.5 MMOL/L (3.5-5.1); SODIUM 140 MMOL/L (135-145); TOTAL CARBON DIOXIDE 28.3 MMOL/L (24-32); eGFR > 90 ML/MIN
--- NOTE | 2019-08-22 13:32 | NUR ---
PTT therapeutic, no change. Pt to be transferred to [facility] at 1500 with dart nurse due to continuing heparin drip.
[2019-08-22 13:42] LABS: TOTAL CELLS COUNTED 100
[2019-08-22 13:43] LABS: ANISOCYTOSIS 1+; PLATELET ESTIMATE NORMAL; TOXIC VACUOLATION 1+
[2019-08-22 13:44] LABS: ELLIPTOCYTES FEW; SCHISTOCYTES FEW; TEAR DROP CELLS FEW
[2019-08-22] MEDS ORDERED: PANT40TA4 PO (15:29)
[2019-08-22] MEDS ORDERED: DILT30TA5 PO (15:29)
--- NOTE | 2019-08-22 15:35 | NUR ---
Pt discharged with ambulance drivers for transfer to [facility]. IV's left in. Heparin drip running, Raquel Kenney RN to ride with drivers to assisst with heparin gtt. Flores in place. Pt cleaned from stool just prior to leave and put in depends. Son took home some items, Patient took purse in cargo van. All belongings taken from room. Pt will rehab and resume treatment at [facility]. Report called to Esthela. All questions answered.
[2019-08-24 12:50] LABS: OCCULT BLOOD STOOL NEGATIVE (Neg)
== END 2019-08-22 15:45 | DRG 557 ==
LOC: ER 13:24 → ED HOLD 17:15 → EDBEDREQTM 17:18 → PCU 3S 20:17
PROVIDERS: ADMIT Internal Medicine; ATTEND Internal Medicine
PROC: 30233N1 Transfusion of Nonautologous Red Blood Cells into Peripheral Vein, Percutaneous Approach (ICD-10-PCS; 2019-08-15)
PROC: BW211ZZ Computerized Tomography (CT Scan) of Abdomen and Pelvis using Low Osmolar Contrast (ICD-10-PCS; 2019-08-16)
PROC: 0DJ08ZZ Inspection of Upper Intestinal Tract, Via Natural or Artificial Opening Endoscopic (ICD-10-PCS; principal; 2019-08-19)
PROC: B4201ZZ Computerized Tomography (CT Scan) of Abdominal Aorta using Low Osmolar Contrast (ICD-10-PCS; 2019-08-19)
DX: M62.82 Rhabdomyolysis (principal); R65.11 Systemic inflammatory response syndrome (SIRS) of non-infectious origin with acute organ dysfunction; N13.30 Unspecified hydronephrosis; K57.32 Diverticulitis of large intestine without perforation or abscess without bleeding; K29.70 Gastritis, unspecified, without bleeding; K29.80 Duodenitis without bleeding; E87.6 Hypokalemia; K22.8 Other specified diseases of esophagus; R29.6 Repeated falls; Z66 Do not resuscitate; W18.39XA Other fall on same level, initial encounter; D63.8 Anemia in other chronic diseases classified elsewhere; Z60.2 Problems related to living alone; Y93.01 Activity, walking, marching and hiking; D72.819 Decreased white blood cell count, unspecified; F03.90 Unspecified dementia, unspecified severity, without behavioral disturbance, psychotic disturbance, mood disturbance, and anxiety; E86.0 Dehydration; I25.10 Atherosclerotic heart disease of native coronary artery without angina pectoris; D73.5 Infarction of spleen; K44.9 Diaphragmatic hernia without obstruction or gangrene; I48.91 Unspecified atrial fibrillation; I25.2 Old myocardial infarction; Y92.89 Other specified places as the place of occurrence of the external cause; Y99.8 Other external cause status
CPT/HCPCS: 36415; 43235; 70450; 71045; 72125; 73030; 73502; 74175; 74176; 74177; 76937; 80048; 80053; 80061; 81001; 82272; 82550; 82728; 83010; 83036; 83540; 83550; 83605; 83615; 83690; 83735; 83880; 84132; 84145; 84443; 84484; 85025; 85027; 85045; 85610; 85730; 86677; 86885; 86900; 86901; 86920; 87040; 87077; 87081; 87088; 87186; 89055; 92508; 92616; 93005; 93306; 93970; 96365; 96375; 97110; 97161; 97162; 97530; 97535; 99152; 99285; A4620; C9113; G0378; J0696; J1160; J1644; J1956; J2250; J2270; J2543; J3010; J3480; J3490; J7040; P9016; Q9967